=== PATIENT | male | born 1955 | race Caucasian/White ===

== ENCOUNTER 2016-12-19 08:48 | Inpatient (IN) | payer OTHER ==
[2016-12-19] VITALS (9 sets, daily range): BP systolic 151–213; BP diastolic 63–102
[~2016-12-19] VITALS: Ht 180.3 cm; Wt 134.9 kg
[~2016-12-19 08:48] MED LIST: COZAAR50 MG PO; CYMBALTA60 MG PO; GLUCOPHAGE500 MG PO; LIPITOR40 MG PO; LO-DOSE ASPIRIN81 M1 PO; OPANA ER40 MG; OPANA ER40 MG PO
[2016-12-19 10:05] LABS: HEMATOCRIT 39.1 % (38.0-50.0); MCH 30.5 PG (29.0-34.0); MCHC 36.1 G/DL (30.0-36.0); MCV 84.4 FL (86-99); MEAN PLAT.VOLUME 9.4 uM^3 (9.0-12.4); PLATELET COUNT 268 K/uL (156-360); RBC DIS.WIDTH-CV 13.7 % (11.8-14.6); RBC DIS.WIDTH-SD 41.7 % (39-53); RED BLOOD COUNT 4.63 M/uL (4.00-5.50); WHITE BLOOD COUNT 11.2 K/uL (4.1-10.2)
[2016-12-19 10:15] LABS: CHLORIDE 77 mEq/L (99-109); POTASSIUM 3.4 mEq/L (3.7-5.4)
[2016-12-19 10:17] LABS: GLUCOSE 118 mg/dL (70-99)
[2016-12-19 10:18] LABS: ANION GAP 12 MEQ/L (2-14)
[2016-12-19 10:19] LABS: SODIUM 117 mEq/L (136-147)
[2016-12-19 10:21] LABS: GFR ESTIMATE (CALCULATED) > 59 mL/min/
[2016-12-19 10:22] LABS: UREA NITROGEN (BUN) 7 mg/dL (9-23)
[2016-12-19 10:26] LABS: BICARBONATE 35.2 mEq/L (22-26); CARBOXY HGB 13.2 % (0-5); COMMENTS - BLOOD GASES A+C+; DEVICE NC; METHEMOGLOBIN 1.1 % (0-1.5); O2 FLOW 2 L/MIN; PCO2 53 mm Hg (35-45); PO2 63 mm Hg (80-100); SITE RRA; TOTAL RESP RATE 16 resp/min; pH 7.43 (7.35-7.45)
[2016-12-19 10:27] LABS: TROP-I INTERPRETATION NEGATIVE; TROPONIN-I < 0.01 ng/mL (0.0-0.30)
[2016-12-19 13:29] LABS: CHLORIDE 81 mEq/L (99-109); POTASSIUM 3.4 mEq/L (3.7-5.4)
[2016-12-19 13:31] LABS: GLUCOSE 108 mg/dL (70-99)
[2016-12-19 13:33] LABS: ANION GAP 7 MEQ/L (2-14); SODIUM 116 mEq/L (136-147)
[2016-12-19 13:35] LABS: GFR ESTIMATE (CALCULATED) > 59 mL/min/
[2016-12-19 13:36] LABS: UREA NITROGEN (BUN) 6 mg/dL (9-23)
[2016-12-19 15:46] LABS: ADD MIUA? NO; BILIRUBIN NEGATIVE; BLOOD NEGATIVE; COLOR YELLOW ((YELLOW)); GLUCOSE (STRIP) NEGATIVE; KETONES NEGATIVE; LEUKOCYTES NEGATIVE; NITRITE NEGATIVE; PROTEIN (STRIP) 30; SPECIFIC GRAVITY 1.015 (1.000-1.030); UCUL ADDED? NO
[2016-12-19 18:20] LABS: METH RESISTANT S AUREUS PCR POSITIVE (NEGATIVE)
[2016-12-19 18:30] LABS: PROBE CHECK PASS
[2016-12-19 20:49] LABS: ANION GAP 4 MEQ/L (2-14); CHLORIDE 81 MEQ/L (99-109); GFR ESTIMATE (CALCULATED) > 59 mL/min/; GLUCOSE 102 mg/dL (70-99); POTASSIUM 3.6 MEQ/L (3.7-5.4); SAMPLE HEMOLYSIS CHECK 0; SAMPLE ICTERIC CHECK 0; SAMPLE LIPEMIA CHECK 0; UREA NITROGEN (BUN) 6 mg/dL (9-23)
[2016-12-19 20:52] LABS: SODIUM 116 MEQ/L (136-147)
[2016-12-20] VITALS (20 sets, daily range): BP systolic 131–177; BP diastolic 64–90
[2016-12-20 01:00] LABS: HEMATOCRIT 38.2 % (38.0-50.0); MCH 30.1 PG (29.0-34.0); MCHC 35.6 G/DL (30.0-36.0); MCV 84.5 FL (86-99); MEAN PLAT.VOLUME 9.9 uM^3 (9.0-12.4); PLATELET COUNT 261 K/uL (156-360); RED BLOOD COUNT 4.52 M/uL (4.00-5.50)
[2016-12-20 01:07] LABS: CHLORIDE 85 mEq/L (99-109); POTASSIUM 3.6 mEq/L (3.7-5.4)
[2016-12-20 01:09] LABS: GLUCOSE 92 mg/dL (70-99); SODIUM 122 mEq/L (136-147)
[2016-12-20 01:11] LABS: ANION GAP 8 MEQ/L (2-14)
[2016-12-20 01:13] LABS: GFR ESTIMATE (CALCULATED) > 59 mL/min/
[2016-12-20 01:14] LABS: UREA NITROGEN (BUN) 6 mg/dL (9-23)
[2016-12-20 07:23] LABS: ANION GAP 5 MEQ/L (2-14); CHLORIDE 86 MEQ/L (99-109); GFR ESTIMATE (CALCULATED) > 59 mL/min/; GLUCOSE 93 mg/dL (70-99); POTASSIUM 3.7 MEQ/L (3.7-5.4); SAMPLE HEMOLYSIS CHECK 1; SAMPLE ICTERIC CHECK 0; SAMPLE LIPEMIA CHECK 0; UREA NITROGEN (BUN) 7 mg/dL (9-23)
[2016-12-20 07:32] LABS: SODIUM 119 MEQ/L (136-147)
[2016-12-20 10:51] LABS: ANION GAP 6 MEQ/L (2-14); CHLORIDE 87 MEQ/L (99-109); POTASSIUM 3.9 MEQ/L (3.7-5.4); SAMPLE HEMOLYSIS CHECK 0; SAMPLE ICTERIC CHECK 0; SAMPLE LIPEMIA CHECK 0; SODIUM 121 MEQ/L (136-147)
[2016-12-20 10:57] LABS: GFR ESTIMATE (CALCULATED) > 59 mL/min/; GLUCOSE 108 mg/dL (70-99); UREA NITROGEN (BUN) 7 mg/dL (9-23)
[2016-12-20 14:46] LABS: ANION GAP 6 MEQ/L (2-14); CHLORIDE 89 MEQ/L (99-109); POTASSIUM 3.8 MEQ/L (3.7-5.4); SAMPLE HEMOLYSIS CHECK 0; SAMPLE ICTERIC CHECK 0; SAMPLE LIPEMIA CHECK 0; SODIUM 121 MEQ/L (136-147)
[2016-12-20 14:51] LABS: GFR ESTIMATE (CALCULATED) > 59 mL/min/; GLUCOSE 135 mg/dL (70-99); UREA NITROGEN (BUN) 9 mg/dL (9-23)
[2016-12-20 19:01] LABS: ANION GAP 6 MEQ/L (2-14); CHLORIDE 91 MEQ/L (99-109); GFR ESTIMATE (CALCULATED) > 59 mL/min/; GLUCOSE 116 mg/dL (70-99); POTASSIUM 3.7 MEQ/L (3.7-5.4); SAMPLE HEMOLYSIS CHECK 0; SAMPLE ICTERIC CHECK 0; SAMPLE LIPEMIA CHECK 0; SODIUM 125 MEQ/L (136-147); UREA NITROGEN (BUN) 9 mg/dL (9-23)
[2016-12-20 22:30] LABS: ANION GAP 6 MEQ/L (2-14); CHLORIDE 93 MEQ/L (99-109); GFR ESTIMATE (CALCULATED) > 59 mL/min/; GLUCOSE 99 mg/dL (70-99); POTASSIUM 4.3 MEQ/L (3.7-5.4); SAMPLE HEMOLYSIS CHECK 1; SAMPLE ICTERIC CHECK 0; SAMPLE LIPEMIA CHECK 0; SODIUM 126 MEQ/L (136-147); UREA NITROGEN (BUN) 9 mg/dL (9-23)
[2016-12-21] VITALS (16 sets, daily range): BP systolic 126–179; BP diastolic 58–111
[2016-12-21 00:50] LABS: SODIUM 127 mEq/L (136-147)
[2016-12-21 00:51] LABS: GLUCOSE 97 mg/dL (70-99)
[2016-12-21 00:53] LABS: ANION GAP 4 MEQ/L (2-14)
[2016-12-21 00:55] LABS: GFR ESTIMATE (CALCULATED) > 59 mL/min/
[2016-12-21 00:56] LABS: UREA NITROGEN (BUN) 9 mg/dL (9-23)
[2016-12-21 00:58] LABS: CHLORIDE 96 mEq/L (99-109)
[2016-12-21 04:42] LABS: CHLORIDE 96 mEq/L (99-109); POTASSIUM 4.7 mEq/L (3.7-5.4); SODIUM 129 mEq/L (136-147)
[2016-12-21 04:44] LABS: GLUCOSE 89 mg/dL (70-99)
[2016-12-21 04:45] LABS: ANION GAP 6 MEQ/L (2-14)
[2016-12-21 04:46] LABS: TOTAL BILIRUBIN 0.3 mg/dL (0.0-1.0)
[2016-12-21 04:47] LABS: ALKALINE PHOSPHATASE 96 IU/L (3-129)
[2016-12-21 04:48] LABS: GFR ESTIMATE (CALCULATED) > 59 mL/min/
[2016-12-21 04:49] LABS: DIRECT BILIRUBIN 0.1 mg/dL (0.0-0.3); UREA NITROGEN (BUN) 9 mg/dL (9-23)
[2016-12-21 09:16] LABS: ANION GAP 6 MEQ/L (2-14); CHLORIDE 91 MEQ/L (99-109); SAMPLE HEMOLYSIS CHECK 0; SAMPLE ICTERIC CHECK 0; SAMPLE LIPEMIA CHECK 0; SODIUM 125 MEQ/L (136-147)
[2016-12-21 09:22] LABS: GFR ESTIMATE (CALCULATED) > 59 mL/min/; GLUCOSE 89 mg/dL (70-99); UREA NITROGEN (BUN) 8 mg/dL (9-23)
[2016-12-21 12:35] LABS: ANION GAP 4 MEQ/L (2-14); CHLORIDE 92 MEQ/L (99-109); POTASSIUM 3.9 MEQ/L (3.7-5.4); SAMPLE HEMOLYSIS CHECK 0; SAMPLE ICTERIC CHECK 0; SAMPLE LIPEMIA CHECK 0; SODIUM 126 MEQ/L (136-147)
[2016-12-21 12:40] LABS: GFR ESTIMATE (CALCULATED) > 59 mL/min/; UREA NITROGEN (BUN) 9 mg/dL (9-23)
[2016-12-21 12:41] LABS: GLUCOSE 113 mg/dL (70-99)
[2016-12-21 17:29] LABS: ANION GAP 6 MEQ/L (2-14); CHLORIDE 92 MEQ/L (99-109); GFR ESTIMATE (CALCULATED) > 59 mL/min/; GLUCOSE 94 mg/dL (70-99); POTASSIUM 3.7 MEQ/L (3.7-5.4); SAMPLE HEMOLYSIS CHECK 0; SAMPLE ICTERIC CHECK 0; SAMPLE LIPEMIA CHECK 0; SODIUM 128 MEQ/L (136-147); UREA NITROGEN (BUN) 7 mg/dL (9-23)
[2016-12-21 20:53] LABS: CHLORIDE 93 mEq/L (99-109); POTASSIUM 4.3 mEq/L (3.7-5.4); SODIUM 128 mEq/L (136-147)
[2016-12-21 20:55] LABS: GLUCOSE 116 mg/dL (70-99)
[2016-12-21 20:56] LABS: ANION GAP 9 MEQ/L (2-14)
[2016-12-21 20:59] LABS: GFR ESTIMATE (CALCULATED) > 59 mL/min/
[2016-12-21 21:00] LABS: UREA NITROGEN (BUN) 9 mg/dL (9-23)
[2016-12-22 03:48] VITALS: BP 149/64
[2016-12-22 07:32] LABS: EOSINOPHIL (%) 1.7 % (0-5); EOSINOPHIL COUNT 0.2 K/uL (0-0.3); HEMATOCRIT 37.7 % (38.0-50.0); IMMATURE GRANULOCYTE (%) 0.3 % (0.0-0.7); LYMPHOCYTE COUNT 1.9 K/uL (1.0-2.8); MCH 30.9 PG (29.0-34.0); MCHC 34.2 G/DL (30.0-36.0); MCV 90.4 FL (86-99); MEAN PLAT.VOLUME 10.2 uM^3 (9.0-12.4); MONOCYTE (%) 6.5 % (3-12); MONOCYTE COUNT 0.6 K/uL (0-0.8); NEUTROPHIL (%) 70.2 % (45-76); NEUTROPHIL COUNT 6.3 K/uL (1.8-6.4); PLATELET COUNT 257 K/uL (156-360); RBC DIS.WIDTH-CV 14.7 % (11.8-14.6); RBC DIS.WIDTH-SD 47.9 % (39-53); RED BLOOD COUNT 4.17 M/uL (4.00-5.50)
[2016-12-22 07:35] LABS: ALKALINE PHOSPHATASE 80 IU/L (3-129); ANION GAP 7 MEQ/L (2-14); CHLORIDE 94 MEQ/L (99-109); GFR ESTIMATE (CALCULATED) > 59 mL/min/; GLUCOSE 80 mg/dL (70-99); SAMPLE HEMOLYSIS CHECK 0; SAMPLE ICTERIC CHECK 0; SAMPLE LIPEMIA CHECK 0; SODIUM 130 MEQ/L (136-147); TOTAL BILIRUBIN 0.5 MG/DL (0.0-1.0); UREA NITROGEN (BUN) 8 mg/dL (9-23)
[2016-12-22 07:43] VITALS: BP 130/60
[2016-12-22 12:07] VITALS: BP 134/76
[2016-12-22 15:41] LABS: ANION GAP 8 MEQ/L (2-14); CHLORIDE 94 MEQ/L (99-109); GFR ESTIMATE (CALCULATED) > 59 mL/min/; POTASSIUM 3.9 MEQ/L (3.7-5.4); SAMPLE HEMOLYSIS CHECK 0; SAMPLE ICTERIC CHECK 0; SAMPLE LIPEMIA CHECK 0; SODIUM 133 MEQ/L (136-147); UREA NITROGEN (BUN) 10 mg/dL (9-23)
[2016-12-22 15:48] LABS: GLUCOSE 106 mg/dL (70-99)
[2016-12-22 16:47] VITALS: BP 170/76
[2016-12-22 20:00] VITALS: BP 190/86
[2016-12-22 20:30] VITALS: BP 160/73
[2016-12-23 00:04] VITALS: BP 174/72
[2016-12-23 03:46] VITALS: BP 126/62
[2016-12-23 07:00] VITALS: BP 162/63
[2016-12-23 07:39] LABS: EOSINOPHIL (%) 2.1 % (0-5); EOSINOPHIL COUNT 0.2 K/uL (0-0.3); HEMATOCRIT 37.9 % (38.0-50.0); IMMATURE GRANULOCYTE (%) 0.3 % (0.0-0.7); LYMPHOCYTE COUNT 2.1 K/uL (1.0-2.8); MCH 30.1 PG (29.0-34.0); MCHC 33.2 G/DL (30.0-36.0); MCV 90.5 FL (86-99); MEAN PLAT.VOLUME 9.8 uM^3 (9.0-12.4); MONOCYTE (%) 6.8 % (3-12); MONOCYTE COUNT 0.6 K/uL (0-0.8); NEUTROPHIL (%) 67.3 % (45-76); NEUTROPHIL COUNT 6.1 K/uL (1.8-6.4); PLATELET COUNT 257 K/uL (156-360); RBC DIS.WIDTH-CV 14.9 % (11.8-14.6); RBC DIS.WIDTH-SD 49.3 % (39-53); RED BLOOD COUNT 4.19 M/uL (4.00-5.50); WHITE BLOOD COUNT 9.1 K/uL (4.1-10.2)
[2016-12-23 07:39] LABS: Estimated Average Glucose 126 mg/dL (70-123)
[2016-12-23 08:01] LABS: ALKALINE PHOSPHATASE 75 IU/L (3-129); ANION GAP 8 MEQ/L (2-14); CHLORIDE 97 MEQ/L (99-109); GFR ESTIMATE (CALCULATED) > 59 mL/min/; GLUCOSE 81 mg/dL (70-99); POTASSIUM 4.1 MEQ/L (3.7-5.4); SAMPLE HEMOLYSIS CHECK 0; SAMPLE ICTERIC CHECK 0; SAMPLE LIPEMIA CHECK 0; SODIUM 132 MEQ/L (136-147); TOTAL BILIRUBIN 0.5 MG/DL (0.0-1.0); UREA NITROGEN (BUN) 10 mg/dL (9-23)
[2016-12-23 11:08] VITALS: BP 146/71
[2016-12-23] MEDS ORDERED: CIPRO500 MG PO (11:25)
[2016-12-23] MEDS ORDERED: SPIRIVA RESPIMAT4 GM IH (11:26)
== END 2016-12-23 13:28 | disposition home health service (06) | DRG 622 ==
LOC: EME 08:48 → 4WEST 13:35 → EDOF 13:35 → 2EAST 13:35 → EDOF 13:59 → 4WEST 16:15 → 2EAST 12-21 15:41
PROVIDERS: Emergency Medicine; Hospitalist; Internal Medicine; Internal Medicine Critical Care Medicine
PROC: 0HBKXZZ Excision of Right Lower Leg Skin, External Approach (ICD-10-PCS; principal; 2016-12-20)
DX: E22.2 Syndrome of inappropriate secretion of antidiuretic hormone (principal); J18.9 Pneumonia, unspecified organism; J96.01 Acute respiratory failure with hypoxia; Z68.41 Body mass index [BMI] 40.0-44.9, adult; J98.11 Atelectasis; F05 Delirium due to known physiological condition; E86.0 Dehydration; I10 Essential (primary) hypertension; E11.65 Type 2 diabetes mellitus with hyperglycemia; E66.01 Morbid (severe) obesity due to excess calories; F17.210 Nicotine dependence, cigarettes, uncomplicated; I73.9 Peripheral vascular disease, unspecified; E78.5 Hyperlipidemia, unspecified; R91.1 Solitary pulmonary nodule; R44.1 Visual hallucinations; E87.8 Other disorders of electrolyte and fluid balance, not elsewhere classified; M54.9 Dorsalgia, unspecified; E11.40 Type 2 diabetes mellitus with diabetic neuropathy, unspecified; K76.0 Fatty (change of) liver, not elsewhere classified; E86.1 Hypovolemia; G89.29 Other chronic pain; Z91.120 Patient's intentional underdosing of medication regimen due to financial hardship; Z88.1 Allergy status to other antibiotic agents; Z79.84 Long term (current) use of oral hypoglycemic drugs; T81.89XD Other complications of procedures, not elsewhere classified, subsequent encounter
CPT/HCPCS: 36600; 70450; 71010; 71250; 80048; 80048 91; 80053; 80076; 81003; 82436; 82607; 82746; 82803; 82948; 83036; 83605; 83880; 83935; 84133; 84300; 84443; 84484; 85025; 85027; 87040; 87641; 93005; 93925; 94640; 94640 76; 94760; 94799; 99202; 99281; 99285; J0360; J0456; J0696; J1650; J1815; J1940; J7030; J7050

== ENCOUNTER 2017-05-25 12:58 | Inpatient (IN) | payer OTHER ==
[~2017-05-25] VITALS: Ht 175.3 cm; Wt 145.9 kg
[~2017-05-25 12:58] MED LIST changes: +CIPRO500 MG PO; +SPIRIVA RESPIMAT4 GM IH
[2017-05-25 13:52] LABS: POINT-OF-CARE METER ID UU13113800
[2017-05-25 14:19] LABS: MCH 28.7 PG (29.0-34.0); MCHC 32.7 G/DL (30.0-36.0); MCV 87.7 FL (86-99); MEAN PLAT.VOLUME 9.9 uM^3 (9.0-12.4); PLATELET COUNT 277 K/uL (156-360); RBC DIS.WIDTH-CV 14.3 % (11.8-14.6); RBC DIS.WIDTH-SD 46.2 % (39-53); RED BLOOD COUNT 4.22 M/uL (4.00-5.50); WHITE BLOOD COUNT 10.8 K/uL (4.1-10.2)
[2017-05-25 14:30] LABS: CHLORIDE 91 mEq/L (99-109); POTASSIUM 3.3 mEq/L (3.7-5.4); SODIUM 131 mEq/L (136-147)
[2017-05-25 14:32] LABS: GLUCOSE 139 mg/dL (70-99)
[2017-05-25 14:33] LABS: ANION GAP 11 MEQ/L (2-14)
[2017-05-25 14:34] LABS: TOTAL BILIRUBIN 0.2 mg/dL (0.0-1.0)
[2017-05-25 14:35] LABS: ALKALINE PHOSPHATASE 106 IU/L (3-129)
[2017-05-25 14:36] LABS: GFR ESTIMATE (CALCULATED) 47 mL/min/
[2017-05-25 14:37] LABS: UREA NITROGEN (BUN) 18 mg/dL (9-23)
[2017-05-25 15:15] LABS: ADD MIUA? YES; BILIRUBIN NEGATIVE; BLOOD SMALL; COLOR YELLOW ((YELLOW)); GLUCOSE (STRIP) NEGATIVE; KETONES NEGATIVE; LEUKOCYTES NEGATIVE; NITRITE NEGATIVE; PROTEIN (STRIP) NEGATIVE; SPECIFIC GRAVITY 1.009 (1.000-1.030); UROBILINOGEN 0.2 MG/DL (0.2-1.0)
[2017-05-25 15:16] LABS: TROP-I INTERPRETATION NEGATIVE
[2017-05-25 15:18] LABS: BACTERIA RARE /HPF; EPITHELIAL CELLS RARE /HPF; HYALINE CASTS 0-5 /LPF; MUCUS TRACE /LPF; RED BLOOD CELLS 0-5 /HPF (0-5); UCUL ADDED? NO; WHITE BLOOD CELLS 0-5 /HPF (0-5)
[2017-05-25 15:24] LABS: AMPHETAMINE NEGATIVE (500 ng/mL); BARBITURATES NEGATIVE (200 ng/mL); BENZODIAZEPINES NEGATIVE (150 ng/mL); COCAINE NEGATIVE (150 ng/mL); INTERNAL CONTROLS VALID? YES; METHADONE NEGATIVE (200 ng/mL); METHAMPHETAMINE NEGATIVE (500 ng/mL); OPIATES (MORPHINE) NEGATIVE (100 ng/mL); OXYCODONE PRESUMPTIVE POSITIVE (100 ng/mL); PHENCYCLIDINE NEGATIVE (25 ng/mL); PROPOXYPHENE NEGATIVE (300 ng/mL); THC CANNABINOIDS NEGATIVE (50 ng/mL); TRICYCLIC ANTIDEPRESSANTS NEGATIVE (300 ng/mL)
[2017-05-25] MEDS ORDERED: TRENTAL400 MG PO (17:04)
[2017-05-25] MEDS ORDERED: NORVASC5 MG PO (17:05)
[2017-05-25] MEDS ORDERED: HYZAAR 100-21 TABLET PO (17:05)
[2017-05-25] MEDS ORDERED: OPANA ER40 MG PO (17:06)
[2017-05-25] MEDS ORDERED: LYRICA100 MG PO (17:07)
[2017-05-25 19:31] LABS: BASE EXCESS 3.7 mEq/L (-3 to +3); BICARBONATE 32.2 mEq/L (22-26); METHEMOGLOBIN 1.1 % (0-1.5); PO2 65 mm Hg (80-100)
[2017-05-25 19:32] LABS: COMMENTS - BLOOD GASES A+C+; DEVICE NEB; O2 FLOW 6 L/MIN; PCO2 67 mm Hg (35-45); SITE RR; TOTAL RESP RATE 12 resp/min; pH 7.29 (7.35-7.45)
[2017-05-25 22:30] VITALS: BP 129/58
[2017-05-25 22:53] LABS: POINT-OF-CARE METER ID UU13113698
[2017-05-26 00:10] VITALS: BP 126/56
[2017-05-26 04:21] LABS: BASE EXCESS 3.5 mEq/L (-3 to +3); BICARBONATE 30.4 mEq/L (22-26); METHEMOGLOBIN 1.8 % (0-1.5); O2 FLOW 6 L/MIN; PCO2 55 mm Hg (35-45); PO2 50 mm Hg (80-100); SITE LR; pH 7.35 (7.35-7.45)
[2017-05-26 04:22] LABS: TOTAL RESP RATE 16 resp/min
[2017-05-26 04:41] VITALS: BP 127/62
[2017-05-26 05:30] LABS: HEMATOCRIT 36.4 % (38.0-50.0); MCH 29.3 PG (29.0-34.0); MCHC 33.2 G/DL (30.0-36.0); MCV 88.1 FL (86-99); MEAN PLAT.VOLUME 10.5 uM^3 (9.0-12.4); PLATELET COUNT 299 K/uL (156-360); RBC DIS.WIDTH-CV 14.6 % (11.8-14.6); RBC DIS.WIDTH-SD 47.3 % (39-53); RED BLOOD COUNT 4.13 M/uL (4.00-5.50)
[2017-05-26 05:57] LABS: ANION GAP 10 MEQ/L (2-14); CHLORIDE 95 MEQ/L (99-109); GFR ESTIMATE (CALCULATED) 55 mL/min/; POTASSIUM 3.9 MEQ/L (3.7-5.4); SAMPLE HEMOLYSIS CHECK 0; SAMPLE ICTERIC CHECK 0; SAMPLE LIPEMIA CHECK 0; SODIUM 133 MEQ/L (136-147); UREA NITROGEN (BUN) 19 mg/dL (9-23)
[2017-05-26 06:01] LABS: GLUCOSE 296 mg/dL (70-99)
[2017-05-26 07:19] VITALS: BP 131/56
[2017-05-26 11:08] LABS: POINT-OF-CARE METER ID UU14174216
[2017-05-26 11:41] VITALS: BP 126/60
[2017-05-26 15:58] VITALS: BP 152/70
== END 2017-05-26 19:53 | disposition left against medical advice (07) | DRG 189 ==
LOC: EME 12:58 → EDOF 19:38 → 4EAST 19:38
PROVIDERS: Hospitalist; Physician Assistant
PROC: 5A09357 Assistance with Respiratory Ventilation, Less than 24 Consecutive Hours, Continuous Positive Airway Pressure (ICD-10-PCS; principal; 2017-05-26)
DX: J96.21 Acute and chronic respiratory failure with hypoxia (principal); J44.1 Chronic obstructive pulmonary disease with (acute) exacerbation; J44.0 Chronic obstructive pulmonary disease with (acute) lower respiratory infection; J20.9 Acute bronchitis, unspecified; R47.81 Slurred speech; E87.1 Hypo-osmolality and hyponatremia; E87.4 Mixed disorder of acid-base balance; E87.6 Hypokalemia; G47.33 Obstructive sleep apnea (adult) (pediatric); E11.9 Type 2 diabetes mellitus without complications; G89.29 Other chronic pain; I10 Essential (primary) hypertension; I25.10 Atherosclerotic heart disease of native coronary artery without angina pectoris; L97.319 Non-pressure chronic ulcer of right ankle with unspecified severity; L97.819 Non-pressure chronic ulcer of other part of right lower leg with unspecified severity; E66.9 Obesity, unspecified; F17.210 Nicotine dependence, cigarettes, uncomplicated; Z68.42 Body mass index [BMI] 45.0-49.9, adult; Z79.82 Long term (current) use of aspirin; Z79.84 Long term (current) use of oral hypoglycemic drugs; Z88.1 Allergy status to other antibiotic agents
CPT/HCPCS: 36600; 70450; 71020; 71275; 80048; 80053; 81003; 82803; 82948; 83605; 84484; 85027; 87040; 87070; 87205; 93005; 94640; 94644; 94660; 94799; 99202; 99281; 99285; J1644; J1815; J1956; J2920; J2930; J3475; J7030

== ENCOUNTER → 2018-04-28 16:47 | Emergency (ER) | payer OTHER ==
[~2018-04-28] VITALS: Ht 177.8 cm; Wt 127.2 kg
[~2018-04-28 16:47] MED LIST changes: +HYZAAR 100-21 TABLET PO; +LYRICA100 MG PO; +NORVASC5 MG PO; +TRENTAL400 MG PO
[2018-04-28 17:39] VITALS: BP 152/79
== END | disposition left against medical advice (07) ==
LOC: EME 16:47
DX: R79.89 Other specified abnormal findings of blood chemistry (principal); Z53.21 Procedure and treatment not carried out due to patient leaving prior to being seen by health care provider
CPT/HCPCS: 71046; 80053; 82248; 85025; 85610; 85730; 93005